=== PATIENT | female | born 2000 | race African-American/Black ===

== ENCOUNTER → 2022-05-15 | Outpatient (REF) | LOC: M LAB 15:20 | PROVIDERS: ATTEND Nurse Practitioner Adult Health | DX: Z02.1 Encounter for pre-employment examination (principal) ==

== ENCOUNTER 2022-05-20 02:21 | Emergency (ER) | payer OTHER ==
[~2022-05-20] VITALS: Ht 162.6 cm; Wt 57.9 kg
[2022-05-20 03:07] LABS: BASO # 0.1 10^3/uL (0.0-0.2); BASO % 0.7 % (0.0-1.0); EOS # 0.1 10^3/uL (0.0-0.5); EOS % 1.9 % (0.0-3.0); HEMOGLOBIN 12.8 g/dl (12.0-15.5); LYMPH # 2.8 10^3/uL (1.5-5.0); LYMPH % 40.9 % (24.0-44.0); MEAN CORPUSCULAR HEMOGLOBIN 26.4 pg (27.0-33.0); MEAN CORPUSCULAR HGB CONC 33.7 g/dl (32.0-36.5); MEAN CORPUSCULAR VOLUME 78.5 fl (80.0-96.0); MONO # 0.8 10^3/uL (0.0-0.8); MONO % 10.9 % (2.0-8.0); NEUTROPHILS # 3.1 10^3/uL (1.5-8.5); NEUTROPHILS % 45.3 % (36.0-66.0); PLATELET COUNT, AUTOMATED 336 10^3/uL (150-450); RED BLOOD COUNT 4.84 10^6/uL (4.00-5.40); WHITE BLOOD COUNT 6.9 10^3/uL (4.0-10.0)
[2022-05-20 03:29] LABS: LIPASE 38 U/L (12-53)
[2022-05-20 03:49] LABS: ALBUMIN 4.3 G/DL (3.2-5.2); ALKALINE PHOSPHATASE 68 U/L (46-116); ALT/SGPT 14 U/L (7.0-40); AST/SGOT 24 U/L (<34); BILIRUBIN,DIRECT 0.3 MG/DL (<0.4); BILIRUBIN,TOTAL 1.2 MG/DL (0.3-1.2); BLOOD UREA NITROGEN 9 MG/DL (9-23); CALCIUM LEVEL 9.2 MG/DL (8.5-10.1); CARBON DIOXIDE LEVEL 23 MMOL/L (20-31); CHLORIDE LEVEL 107 MMOL/L (98-107); CREATININE FOR GFR 0.73 MG/DL (0.55-1.30); GLOMERULAR FILTRATION RATE > 60.0 (>60); GLUCOSE, FASTING 93 MG/DL (60-100); POTASSIUM SERUM 4.2 MMOL/L (3.5-5.1); SODIUM LEVEL 137 MMOL/L (136-145); TOTAL PROTEIN 6.8 G/DL (5.7-8.2)
[2022-05-20 03:58] LABS: HCG, SERUM QUALITATIVE NEGATIVE (NEGATIVE)
[2022-05-20] MEDS ORDERED: MORPHINE 2 MG/ML 1ML VIAL IV ONE (06:25)
[2022-05-20] MEDS ORDERED: ONDANSETRON 4MG 2ML VIAL IV ONE (06:25)
[2022-05-20] MEDS ORDERED: NS 1,000 ML IV ONE (06:25)
[2022-05-20] MEDS: GASTROGRAFIN SOLUTION 30ML PO SCH ×2 (06:33→07:15)
[2022-05-20] MEDS ORDERED: ISOVUE-370 76% 100ML VIAL As Ordered ONE (08:00)
[2022-05-20 08:11] LABS: GC DNA AMPLIFICATION NEGATIVE (NEGATIVE)
[2022-05-20] MEDS ORDERED: MORPHINE 4 MG/ML 1ML VIAL IV ONE (10:10)
[2022-05-20 11:55] VITALS: BP 102/54
== END 2022-05-20 12:06 | disposition home or self-care (01) ==
LOC: M ED 02:21
DX: N83.209 Unspecified ovarian cyst, unspecified side (principal)
CPT/HCPCS: 74177; 76830; 80048; 80076; 81001; 83690; 84703; 85025; 87210; 87810; 87850; 93041; 93976; 96374; 96375; 96376; 99285; J2405; Q9963; Q9967